=== PATIENT | male | born 1985 | race Caucasian/White ===

== ENCOUNTER 2017-11-13 20:04 | Emergency (ER) | payer SELFPAY ==
[2017-11-13 20:04] VITALS: BP 162/94; PULSE 102; RESP 20; TEMP 37; O2SAT 99; BMI 28.8
--- NOTE | 2017-11-13 20:32 | RAD_ITS ---
STUDY: X-RAY - RIGHT FOOT CLINICAL: Male, 32 years old. Swelling. Pain. Cellulitis. TECHNIQUE: 3 view(s) of the foot. COMPARISON: None. FINDINGS: Normal talus, calcaneus, and tarsal bones. Normal visualized subtalar, talonavicular, calcaneocuboid, tarsal and tarsometatarsal articulations. Normal metatarsi. Normal metatarsophalangeal joint of the great toe. Normal tibial and fibular sesamoid bones. Normal interphalangeal joint of the great toe. Normal phalanges of the great toe. Normal second through fifth metatarsophalangeal joints. Normal interphalangeal joints and phalanges of the lesser toes. The soft tissue structures are unremarkable. RAD/Foot min 3 Views IMPRESSION: Normal x-ray examination of the foot. Electronically Signed: Keyshawn Pete DO at 21:35 EDT Tel [phone], Service support ,
[2017-11-13] MEDS: 0.9% Normal Saline 1,000 ML 999 ML IV (21:01)
[2017-11-13] MEDS: Smz/Tmp Ds Tablet 1 TABLET PO (21:01)
[2017-11-13 21:04] VITALS: PULSE 88; RESP 12; O2SAT 96
[2017-11-13 21:06] LABS: Absolute Lymphocyte Count 4.18 X10^3/ul (0.83-4.51); Absolute Neutrophil Count 9.1 X10^3/uL (2.0-7.7); Basophil# 0.11 X10^3/uL; Basophil% 0.7 % (0-1); Eosinophil# 0.08 X10^3/uL; Eosinophils% 0.5 % (0-5); Hemoglobin 13.9 g/dl (13.0-16.5); Lymphocyte # 4.18 X10^3/ul (4.0); Lymphocyte % 27.8 % (19-41); Mean Corp Hgb Conc 33.1 g/gl (32-36); Mean Corpuscular Hgb 27.1 pg (27.0-32.0); Mean Corpuscular Volume 81.9 fL (80-94); Monocyte# 1.52 X10^3/uL; Monocyte% 10.1 % (0-10); Neutrophil % 60.7 % (47-70); Platelet Count 286 K/mm3 (150-450); RBC Distribution Width CV 13.1 % (11.6-14.6); RBC Distribution Width SD 39.1 fl (35.1-43.9); Red Blood Count 5.13 M/mm3 (4.6-6.2)
[2017-11-13 21:07] LABS: Differential Indicated SCAN CRITERIA MET; POSITIVE COUNT NO; POSITIVE DIFFERENTIAL YES; POSITIVE MORPHOLOGY YES; Partial Thromboplast Time 31.6 Seconds (24.1-36.2); Prothrombin Time (Protime)PT. 13.6 SECONDS (11.7-14.9)
[2017-11-13 21:15] LABS: Platelet Estimate ADEQUATE (ADEQ)
[2017-11-13 21:16] LABS: ALB/GLOB Ratio 0.8 RATIO (0.9-2.4); AST(SGOT) 34 U/L (15-37); Alanine Aminotransfer ALT/SGPT 72 U/L (16-61); Albumin, Serum 3.6 g/dL (3.2-5.0); Alkaline Phosphatase 95 U/L (45-117); Anion Gap 6 (5-15); BUN 16 mg/dL (7-18); BUN/Creat Ratio 14.8 RATIO (10-20); Calcium,Total 8.9 mg/dL (8.5-10.1); Chloride 104 mmol/L (98-107); Creatinine, Serum 1.08 mg/dL (0.70-1.30); EST Glomerular Filtration Rate 84 mL/min (>60); Est Glom Filt Rate - Afr Amer 102 mL/min (>60); Estimated Creatinine Clearance 126.94 ml/min; Globulin 4.4 g/dL (2.2-4.2); Glucose 102 mg/dL (74-106); Potassium 4.6 mmol/L (3.5-5.1); Sodium Level 139 mmol/L (136-145)
[2017-11-13 21:23] LABS: Red Cell Morphology NORM C+C NORMAL (NORM C&C)
[2017-11-13 21:28] LABS: Lactic Acid 0.9 mmol/L (0.4-2.0)
--- NOTE | 2017-11-13 22:04 | ED.VISSUMM ---
- ER Visit Summary Date of Service: 11/13/17 Chief Complaint: Right foot cellulitis History of Present Illness: The patient is a 32 M presenting due to concern for right foot cellulitis. Patient has a history of IV drug abuse. Patient states that he frequently will use his feet as an injection site. He reports that he has not uses feet for over a week, but reports that today he started to notice pain and swelling in his right foot. He denies any constitutional symptoms such as fever. Denies any chest pain shortness of breath. Review of systems otherwise negative. Physical Examination: Vital signs notable for heart rate of 102. Well-nourished male no acute distress. Heart minimally tachycardic and regular no murmurs were present. Lung sounds clear. Abdomen soft nontender. Upper extremity exam shows no evidence of splinter hemorrhages Osler nodes or [place] lesions. Right lower extremity exam shows some edema of the right foot with some overlying erythema but no evidence of lymphangitic streaking no subcutaneous emphysema. Minimal tenderness palpation in the area. Remainder of physical otherwise unremarkable. Test Results: CBC shows leukocytosis of 15 lactic acid negative chemistry normal. Foot x-ray is negative per radiology. Blood cultures were obtained and are pending Emergency Department Course and Treatment: Patient presented for evaluation secondary to what appears to be an infection in his right foot. Laboratory workup shows leukocytosis, but otherwise is within normal limits. Patient was given a liter normal saline and Bactrim. At this point I believe the patient is safe for outpatient management of his foot cellulitis. Patient was given strict return instructions. He will be started on a course of Bactrim, and was discharged Disposition: Discharge Impression: 1. Right foot cellulitis 2. IV drug abuse This note was generated with [employer] dictation software. It may contain incorrect words, spelling, and punctuation that were not noted in review of the chart prior to signing ED Disposition - Plan for ED Patient: Disposition: Home or Assisted Living Chief Complaint: Cellulitis Diagnosis: Cellulitis Instructions: ED Staph Infec Abx Tx Only Prescriptions: Smz/Tmp Ds [Bactrim Ds] 1 tab PO BID #14 tab Referrals: Melissa Reilly [NON-STAFF] - 3-5 Days
--- NOTE | 2017-11-13 22:08 | ED.DCSUM_ITS ---
- ER Visit Summary Date of Service: 11/13/17 Chief Complaint: Right foot cellulitis History of Present Illness: The patient is a 32 M presenting due to concern for right foot cellulitis. Patient has a history of IV drug abuse. Patient states that he frequently will use his feet as an injection site. He reports that he has not uses feet for over a week, but reports that today he started to notice pain and swelling in his right foot. He denies any constitutional symptoms such as fever. Denies any chest pain shortness of breath. Review of systems otherwise negative. Physical Examination: Vital signs notable for heart rate of 102. Well- nourished male no acute distress. Heart minimally tachycardic and regular no murmurs were present. Lung sounds clear. Abdomen soft nontender. Upper extremity exam shows no evidence of splinter hemorrhages Osler nodes or [place] lesions. Right lower extremity exam shows some edema of the right foot with some overlying erythema but no evidence of lymphangitic streaking no subcutaneous emphysema. Minimal tenderness palpation in the area. Remainder of physical otherwise unremarkable. Test Results: CBC shows leukocytosis of 15 lactic acid negative chemistry normal. Foot x-ray is negative per radiology. Blood cultures were obtained and are pending Emergency Department Course and Treatment: Patient presented for evaluation secondary to what appears to be an infection in his right foot. Laboratory workup shows leukocytosis, but otherwise is within normal limits. Patient was given a liter normal saline and Bactrim. At this point I believe the patient is safe for outpatient management of his foot cellulitis. Patient was given strict return instructions. He will be started on a course of Bactrim, and was discharged Disposition: Discharge Impression: 1. Right foot cellulitis 2. IV drug abuse This note was generated with [employer] dictation software. It may contain incorrect words, spelling, and punctuation that were not noted in review of the chart prior to signing ED Disposition - Plan for ED Patient: Disposition: Home or Assisted Living Chief Complaint: Cellulitis Diagnosis: Cellulitis Instructions: ED Staph Infec Abx Tx Only Prescriptions: Smz/Tmp Ds [Bactrim Ds] 1 tab PO BID #14 tab Referrals: Melissa Reilly [NON-STAFF] - 3-5 Days
[2017-11-13 22:22] VITALS: BP 134/83; PULSE 86; RESP 16; O2SAT 97
--- NOTE | 2017-11-13 22:22 | ED.RN ---
signs and symptoms of worsening infection explained, informed to take all of antibiotic. pt [place]. dc'd with dad.
[2017-11-14 10:07] LABS: Pathologist Review Reviewed
== END 2017-11-13 22:23 | disposition home or self-care (01) ==
PROVIDERS: Emergency Provider Emergency Medicine
DX: L03.115 Cellulitis of right lower limb (principal); B96.89 Other specified bacterial agents as the cause of diseases classified elsewhere; F19.10 Other psychoactive substance abuse, uncomplicated
CPT/HCPCS: 73630; 80053; 83605; 85025; 85610; 85730; 87040; 96360; 99285; J7030; A4216

== ENCOUNTER 2021-02-24 00:24 | Emergency (ER) | payer MEDICAID, SELFPAY ==
[2021-02-24 00:26] VITALS: BP 154/108; PULSE 105; RESP 20; TEMP 36; O2SAT 97; BMI 28.2
--- NOTE | 2021-02-24 00:43 | EX.ED.VIS.PS ---
HPI HPI - Psych History of Present Illness Chief Complaint: Suicidal Informant: patient Narrative Narrative: Patient brought in by police secondary to suicidal ideation. Patient states that his is living with another man. He went to try to convince her to come back home and words were said. He reportedly said he was just go kill himself and she called police. Patient denies suicidal thoughts at this time and states it was said in the heat of the moment. He reports a history of depression but has not been on any medication or seen a counselor for approximately 10 years. He denies any prior suicide attempts. [facility] Medical History Depression Medical History no medical history Home Medications tadalafil 10 mg PO PRN PRN 02/24/21 [History Last Taken Unknown] Allergy/AdvReac Type Severity Reaction Status Date / Time venom-honey bee Allergy Severe Anaphylaxis Verified 02/24/21 00:24 [bee venom (honey bee)] Surgical History no surgical history Social History (Updated 02/24/21 @ 00:[address] Almaz Lipscomb MD) Smoking Status: Current every day smoker tobacco type: cigarettes substance use type: marijuana and methamphetamine ROS ROS ED Constitutional Constitutional ED: Denies chills or fever(s) Eyes Eyes: Denies change in vision ENT ENT ED: Denies sore throat Cardiovascular Cardiovascular: Denies chest pain Respiratory/Chest Respiratory/Chest: Denies cough or dyspnea Gastrointestinal Gastrointestinal: Denies abdominal pain, diarrhea, nausea or vomiting Genitourinary Genitourinary ED: Denies dysuria Musculoskeletal Musculoskeletal: Denies back pain Integumentary Denies rash Neurologic Neurologic: Denies headache(s) or weakness Psychiatric Psychiatric: Reports depression; Denies anxiety Allergic/Immunologic Allergic/Immunologic ED: Denies urticaria EXAM Physical Exam Const Vital Signs: 02/24/21 00:26 Temperature 96.8 F L Temperature Source Oral Pulse Rate 105 H Respiratory Rate 20 H Blood Pressure 154/108 H Blood Pressure Mean 123 Pulse Ox 97 Oxygen Delivery Method Room Air Positive well nourished and well developed General Appearance ED: well developed Eyes PERRL and EOMs intact bilaterally Neck supple Resp normal respiratory effort and clear to auscultation bilaterally Cardio Rate: regular rate Rhythm: regular rhythm GI non-tender Auscultation: normoactive bowel sounds Palpation: soft Extremity normal to inspection Neuro oriented x3 Sensorium / Orientation: alert Psych mental status grossly normal, cooperative and affect normal Activity / Motor Behavior: appropriate eye contact Skin Lesions: no lesions Rashes: no rashes MDM MDM MDM Narrative Medical decision making narrative: [place] slip reviewed from the police. It is consistent with what he gave me verbally. Labs for medical clearance obtained. Lab Data Labs: Laboratory Results - last 24 hr 02/24/21 02/24/21 02/24/21 00:53 00:53 00:53 WBC 8.6 RBC 5.31 Hgb 14.3 Hct 44.6 MCV 84.0 MCH 26.9 L MCHC 32.1 RDW Std Deviation 40.0 RDW Coeff of Jono 13.1 Plt Count 295 MPV 10.0 Immature Gran % (Auto) 0.200 Neut % (Auto) 70.8 H Lymph % (Auto) 21.0 [place] % (Auto) 6.5 Eos % (Auto) 0.8 Baso % (Auto) 0.7 Absolute Neuts (auto) 6.1 Absolute Lymphs (auto) 1.81 Nucleated RBC % 0 Sodium 139 Potassium 4.3 Chloride 106 Carbon Dioxide 29.0 Anion Gap 4 L BUN 19 H Creatinine 1.33 H Estim Creat Clear Calc 100.22 Est GFR (MDRD) Af Amer 79 Est GFR (MDRD) Non-Af 65 BUN/Creatinine Ratio 14.3 Glucose 126 H Calcium 9.3 Urine Opiates Screen Urine Methadone Screen Ur Barbiturates Screen Ur Phencyclidine Scrn Ur Amphetamines Screen U Methamphetamin-MDMA U Benzodiazepines Scrn Urine Cocaine Screen U Cannabinoids Screen Ur Drug Screen Comment Ethyl Alcohol 4.0 02/24/21 00:55 WBC RBC Hgb Hct MCV MCH MCHC RDW Std Deviation RDW Coeff of Jono Plt Count MPV Immature Gran % (Auto) Neut % (Auto) Lymph % (Auto) [place] % (Auto) Eos % (Auto) Baso % (Auto) Absolute Neuts (auto) Absolute Lymphs (auto) Nucleated RBC % Sodium Potassium Chloride Carbon Dioxide Anion Gap BUN Creatinine Estim Creat Clear Calc Est GFR (MDRD) Af Amer Est GFR (MDRD) Non-Af BUN/Creatinine Ratio Glucose Calcium Urine Opiates Screen NEGATIVE Urine Methadone Screen NEGATIVE Ur Barbiturates Screen NEGATIVE Ur Phencyclidine Scrn NEGATIVE Ur Amphetamines Screen POSITIVE H U Methamphetamin-MDMA POSITIVE H U Benzodiazepines Scrn NEGATIVE Urine Cocaine Screen NEGATIVE U Cannabinoids Screen POSITIVE H Ur Drug Screen Comment Ethyl Alcohol Treatment and Re-Evaluation Comments:: Lab work reviewed and largely unremarkable. Talk screen is positive for meth and cannabinoids. Sandy from the counseling center spoke with the patient. She will crawl up a safety plan. She will also provide information for drug and alcohol rehab. They will make a follow-up phone call with the patient within the next 24 hours to check on him. Discharge Plan Triage Chief Complaint: Suicidal ED Provider: Almaz Lipscomb Dx/Rx/DC Orders Clinical Impression: Depression Instructions: ED Depression Prescriptions: No Action tadalafil 10 mg tablet 10 mg PO PRN PRN (Reason: Erectile Dysfunction) RF: 0 Primary Care Provider: Care Physician,No Primary Referrals: Counseling,Center [GROUP OF PHYSICIANS] - As soon as possible Care Physician,No Primary [Primary Care Provider] - Disposition Disposition: Home, Self Care
[2021-02-24 00:59] LABS: Absolute Lymphocyte Count 1.81 X10^3/uL (0.83-4.51); Absolute Neutrophil Count 6.1 X10^3/uL (2.0-7.7); Basophil# 0.06 X10^3/uL; Basophil% 0.7 % (0-1); Eosinophil# 0.07 X10^3/uL; Eosinophils% 0.8 % (0-5); Hematocrit 44.6 % (40-54); Hemoglobin 14.3 g/dL (13.0-16.5); Lymphocyte # 1.81 X10^3/ul (0.83-4.51); Mean Corp Hgb Conc 32.1 g/dL (32-36); Mean Corpuscular Hgb 26.9 pg (27.0-32.0); Monocyte# 0.56 X10^3/uL; Monocyte% 6.5 % (0-10); NRBC Flagged by Analyzer 0 % (0-5); Neutrophil # 6.08 X10^3/uL (2.7-7.7); Neutrophil % 70.8 % (47-70); Platelet Count 295 K/mm3 (150-450); RBC Distribution Width CV 13.1 % (11.6-14.6); Red Blood Count 5.31 M/mm3 (4.6-6.2); White Blood Count 8.6 K/mm3 (4.4-11.0)
[2021-02-24 01:17] LABS: Amphetamine Urine VISTA POSITIVE (<1000 ng/mL); Barbiturate Urine VISTA NEGATIVE (< 200 ng/mL); Benzodiazepine Urine VISTA NEGATIVE (< 200 ng/mL); Cocaine Urine VISTA NEGATIVE (< 300 ng/mL); Ecstacy Urine VISTA POSITIVE (< 500 ng/mL); Methadone Urine VISTA NEGATIVE (< 300 ng/mL); PCP Urine VISTA NEGATIVE (< 25 ng/mL); THC Urine VISTA POSITIVE (< 50 ng/mL); Vista UDS pH Range 5
[2021-02-24 01:27] LABS: Anion Gap 4 (5-15); BUN 19 mg/dL (7-18); BUN/Creat Ratio 14.3 RATIO (10-20); Calcium,Total 9.3 mg/dL (8.5-10.1); Chloride 106 mmol/L (98-107); Creatinine, Serum 1.33 mg/dL (0.70-1.30); EST Glomerular Filtration Rate 65 mL/min (>60); Est Glom Filt Rate - Afr Amer 79 mL/min (>60); Estimated Creatinine Clearance 100.22 ml/min; Glucose 126 mg/dL (74-106); Potassium 4.3 mmol/L (3.5-5.1); Sodium Level 139 mmol/L (136-145)
--- NOTE | 2021-02-24 02:03 | ED.RN ---
CALLED CRISIS FOR THE PATIENT AND FAXED PAPERS OVER
[2021-02-24 03:13] VITALS: RESP 16
[2021-02-27 08:09] LABS: HEPATITIS B SURFACE AG Negative (Negative); Hepatitis A IgM Antibody Negative (Negative); Hepatitis B Core AB IgM Negative (Negative)
[2021-02-27 17:37] LABS: Hep C Antibodies >11.0 s/co ratio (0.0-0.9)
== END 2021-02-24 03:14 | disposition home or self-care (01) ==
PROVIDERS: Emergency Provider Emergency Medicine
DX: F32.A Depression, unspecified (principal); R45.851 Suicidal ideations; F17.210 Nicotine dependence, cigarettes, uncomplicated; F12.10 Cannabis abuse, uncomplicated; Z79.899 Other long term (current) drug therapy
CPT/HCPCS: 80048; 80074; 80307; 82077; 85025; 99283

== ENCOUNTER 2021-03-20 08:20 | Emergency (ER) | payer MEDICAID, SELFPAY ==
[2021-03-20 08:21] VITALS: BP 162/105; PULSE 78; RESP 15; TEMP 36.9; O2SAT 99; BMI 26.6
--- NOTE | 2021-03-20 08:33 | EX.ED.VIS.PS ---
HPI HPI - Psych History of Present Illness Chief Complaint: Suicidal Informant: patient Narrative Narrative: Patient admits to being suicidal, chronically and worse now. He apparently had a noose made in his shed where he barricaded himself in this morning, and was texting people goodbye and giving away items that he owns. He states he has been suicidal for a long time and does not want to seek treatment. He was on antidepressants 12 or 13 years ago, they made him feel like a zombie so he stopped taking them and never wants to be on any of them again. He is a daily methamphetamine and marijuana user, his last use was about 3 hours ago, he does IV methamphetamine when he can, his last IV use was yesterday. He does that regularly as well. He denies any fevers, recent illness, recent injury. [facility] Medical History Depression Medical History no medical history Home Medications NK 03/20/21 [History Last Taken Unknown] Allergy/AdvReac Type Severity Reaction Status Date / Time venom-honey bee Allergy Severe Anaphylaxis Verified 03/20/21 08:26 [bee venom (honey bee)] Social History (Updated 02/24/21 @ 00:[address] Almaz Lipscomb MD) Smoking Status: Current every day smoker tobacco type: cigarettes substance use type: marijuana and methamphetamine ROS ROS ED Constitutional Constitutional ED: Denies chills or fever(s) Eyes Eyes: Denies change in vision or diplopia ENT ENT ED: Denies rhinorrhea or sore throat Cardiovascular Cardiovascular: Denies chest pain or palpitations Respiratory/Chest Respiratory/Chest: Denies cough or dyspnea Gastrointestinal Gastrointestinal: Denies abdominal pain, diarrhea, nausea or vomiting Genitourinary Genitourinary ED: Denies dysuria or hematuria Musculoskeletal Musculoskeletal: Denies back pain or neck pain Integumentary Denies abscess or rash Neurologic Neurologic: Denies headache(s), paresthesias or weakness Psychiatric Psychiatric: Reports depression, suicidal ideation and suicidal thoughts; Denies homicidal ideation EXAM Physical Exam Const Vital Signs: 03/20/21 08:21 03/20/21 10:13 03/20/21 12:16 Temperature 98.5 F Temperature Source Oral Pulse Rate 78 82 107 H Respiratory Rate 15 15 16 Blood Pressure 162/105 H 138/74 H 117/81 H Blood Pressure Mean 124 95 93 Pulse Ox 99 97 98 Oxygen Delivery Method Room Air Room Air Room Air 03/20/21 14:33 Temperature Temperature Source Pulse Rate Respiratory Rate 14 Blood Pressure Blood Pressure Mean Pulse Ox Oxygen Delivery Method Positive well nourished and well developed General Appearance ED: well developed and NAD HEENT Reports moist mucous membranes normocephalic and atraumatic Eyes PERRL and EOMs intact bilaterally General Eye ED: Negative for scleral icterus Neck no lymphadenopathy and supple Resp normal respiratory effort and clear to auscultation bilaterally Cardio no murmurs Rate: regular rate and tachycardic Rhythm: regular rhythm GI non-tender and non-distended Auscultation: normoactive bowel sounds Palpation: soft Back/Spine no CVA tenderness and normal ROM Extremity normal to inspection General Extremety ED: Negative for edema General Extremity: Negative for edema Neuro oriented x3, CN's II-XII intact bilaterally, no sensory deficits noted and gait normal Sensorium / Orientation: alert Motor Exam: strength 5/5 throughout Psych mental status grossly normal, thought process normal, cooperative, activity/motor behavior normal and denies homicidal ideation Mood & Affect: depressed Thought Content: suicidality Skin Skin Narrative: 3 nontender subcutaneous nodules on upper extremities, one on the medial right upper arm distally, one at the medial aspect of the mid right forearm, and one in the left medial forearm. All are without any erythema or fluctuance and the patient states these have been there chronically and are unchanged. There is a small scab on the right forearm, from an IV injection site, there is no erythema or tenderness or abscess there. Lesions: no lesions Rashes: no rashes [facility] MDM MDM Narrative Medical decision making narrative: Other than the patient has toxicology positive for methamphetamines and tetrahydrocannabinol, both of which patient admits to using recently this morning, patient's labs are unremarkable and he is medically cleared. None of the nodules on his forearms are in need of urgent attention, they are chronic and do not appear to be infected or abscesses. Likely scar tissue. Patient is pink slipped. Crisis evaluated and agrees he needs to be placed for further psychiatric evaluation. Patient has been cooperative and does not have any evidence of psychosis from methamphetamine. Additionally, since his urinalysis shows no blood or red blood cells, obtaining a CPK to rule out rhabdomyolysis related to methamphetamine abuse would not be indicated or necessary. Lab Data Attestation: I reviewed the patient's lab results. Labs: Laboratory Results - last 24 hr 03/20/21 03/20/21 03/20/21 08:58 08:58 08:58 WBC Cancelled Corrected WBC Cancelled RBC Cancelled Hgb Cancelled Hct Cancelled MCV Cancelled MCH Cancelled MCHC Cancelled RDW Std Deviation Cancelled RDW Coeff of Jono Cancelled Plt Count Cancelled MPV Cancelled Immature Gran % (Auto) Cancelled Neut % (Auto) Cancelled Lymph % (Auto) Cancelled [place] % (Auto) Cancelled Eos % (Auto) Cancelled Baso % (Auto) Cancelled Absolute Neuts (auto) Cancelled Absolute Lymphs (auto) Cancelled Total Counted Cancelled Neutrophils % (Manual) Cancelled Band Neutrophils % Cancelled Lymphocytes % (Manual) Cancelled Monocytes % (Manual) Cancelled Eosinophils % (Manual) Cancelled Basophils % (Manual) Cancelled Metamyelocytes % Cancelled Myelocytes % Cancelled Promyelocytes % Cancelled Blast Cells % Cancelled Plasma Cell % (Manual) Cancelled Other Cells % Cancelled Nucleated RBC % Cancelled Nucleated RBCs/100 WBC Cancelled Differential Comment Cancelled Diff Path Review Cancelled Hypersegmented Neuts Cancelled Atypical Lymphocytes Cancelled Reactive Lymphocytes Cancelled Smudge Cells Cancelled Toxic Granulation Cancelled Toxic Vacuolation Cancelled Dohle Bodies Cancelled Julia Rods Cancelled Platelet Estimate Cancelled Plt Morphology Comment Cancelled RBC Morphology Cancelled Polychromasia Cancelled Hypochromasia Cancelled Poikilocytosis Cancelled Basophilic Stippling Cancelled Anisocytosis Cancelled Microcytosis Cancelled Macrocytosis Cancelled Spherocytes Cancelled Sickle Cells Cancelled Target Cells Cancelled Tear Drop Cells Cancelled Ovalocytes Cancelled Stomatocytes Cancelled [place] Bodies Cancelled [place] Cells Cancelled Bite Cells Cancelled Crenated Cell Cancelled Acanthocytes (Spur) Cancelled Rouleaux Cancelled Schistocytes Cancelled Sodium 137 Potassium 4.6 Chloride 104 Carbon Dioxide 30.0 Anion Gap 3 L BUN 19 H Creatinine 1.20 Estim Creat Clear Calc 111.08 Est GFR (MDRD) Af Amer 88 Est GFR (MDRD) Non-Af 73 BUN/Creatinine Ratio 15.8 Glucose 108 H Calcium 9.0 Urine Color Urine Clarity Urine pH Ur Specific [place] Urine Protein Urine Glucose (UA) Urine Ketones Urine Occult Blood Urine Nitrite Urine Bilirubin Urine Urobilinogen Ur Leukocyte Esterase Urine RBC Urine WBC Ur Squamous Epith Cells Amorphous Sediment Urine Bacteria Urine Mucus Urine Opiates Screen Urine Methadone Screen Ur Barbiturates Screen Ur Phencyclidine Scrn Ur Amphetamines Screen U Methamphetamin-MDMA U Benzodiazepines Scrn Urine Cocaine Screen U Cannabinoids Screen Ur Drug Screen Comment Ethyl Alcohol < 3.0 03/20/21 03/20/21 03/20/21 09:18 10:00 10:00 WBC 8.5 Corrected WBC RBC 5.55 Hgb 14.5 Hct 44.8 MCV 80.7 MCH 26.1 L MCHC 32.4 RDW Std Deviation 37.2 RDW Coeff of Jono 12.7 Plt Count 326 MPV 9.7 Immature Gran % (Auto) 0.200 Neut % (Auto) 71.4 H Lymph % (Auto) 20.4 [place] % (Auto) 7.7 Eos % (Auto) 0.1 Baso % (Auto) 0.2 Absolute Neuts (auto) 6.0 Absolute Lymphs (auto) 1.73 Total Counted Neutrophils % (Manual) Band Neutrophils % Lymphocytes % (Manual) Monocytes % (Manual) Eosinophils % (Manual) Basophils % (Manual) Metamyelocytes % Myelocytes % Promyelocytes % Blast Cells % Plasma Cell % (Manual) Other Cells % Nucleated RBC % 0 Nucleated RBCs/100 WBC Differential Comment Diff Path Review Hypersegmented Neuts Atypical Lymphocytes Reactive Lymphocytes Smudge Cells Toxic Granulation Toxic Vacuolation Dohle Bodies Julia Rods Platelet Estimate Plt Morphology Comment RBC Morphology Polychromasia Hypochromasia Poikilocytosis Basophilic Stippling Anisocytosis Microcytosis Macrocytosis Spherocytes Sickle Cells Target Cells Tear Drop Cells Ovalocytes Stomatocytes [place] Bodies [place] Cells Bite Cells Crenated Cell Acanthocytes (Spur) Rouleaux Schistocytes Sodium Potassium Chloride Carbon Dioxide Anion Gap BUN Creatinine Estim Creat Clear Calc Est GFR (MDRD) Af Amer Est GFR (MDRD) Non-Af BUN/Creatinine Ratio Glucose Calcium Urine Color Yellow Urine Clarity Cloudy Urine pH 5.0 Ur Specific [place] 1.030 Urine Protein 30 H Urine Glucose (UA) Normal Urine Ketones Negative Urine Occult Blood Negative Urine Nitrite Negative Urine Bilirubin Negative Urine Urobilinogen Normal Ur Leukocyte Esterase Negative Urine RBC 0 SEEN Urine WBC 0 SEEN Ur Squamous Epith Cells 0 SEEN Amorphous Sediment 2+ Urine Bacteria 2+ Urine Mucus 0 SEEN Urine Opiates Screen NEGATIVE Urine Methadone Screen NEGATIVE Ur Barbiturates Screen NEGATIVE Ur Phencyclidine Scrn NEGATIVE Ur Amphetamines Screen POSITIVE H U Methamphetamin-MDMA POSITIVE H U Benzodiazepines Scrn NEGATIVE Urine Cocaine Screen NEGATIVE U Cannabinoids Screen POSITIVE H Ur Drug Screen Comment Ethyl Alcohol EKG Initial EKG: Attestation: I personally reviewed and interpreted this EKG as follows: Interpretation: Sinus Rhythm and No Acute Injury Pattern Comments: normal EKG Discharge Plan Triage Chief Complaint: Suicidal ED Provider: Aryan Parsons Dx/Rx/DC Orders Clinical Impression: Suicidal ideation, Methamphetamine abuse Prescriptions: No Action NK RF: 0 Primary Care Provider: Care Physician,No Primary Referrals: Care Physician,No Primary [Primary Care Provider] - Disposition Disposition: Psychiatric Hospital or Unit
[2021-03-20 09:21] LABS: Anion Gap 3 (5-15); BUN 19 mg/dL (7-18); BUN/Creat Ratio 15.8 RATIO (10-20); Chloride 104 mmol/L (98-107); EST Glomerular Filtration Rate 73 mL/min (>60); Est Glom Filt Rate - Afr Amer 88 mL/min (>60); Estimated Creatinine Clearance 111.08 ml/min; Glucose 108 mg/dL (74-106); Potassium 4.6 mmol/L (3.5-5.1); Sodium Level 137 mmol/L (136-145)
[2021-03-20 09:31] LABS: Absolute Lymphocyte Count 1.73 X10^3/uL (0.83-4.51); Basophil# 0.02 X10^3/uL; Basophil% 0.2 % (0-1); Eosinophil# 0.01 X10^3/uL; Eosinophils% 0.1 % (0-5); Hematocrit 44.8 % (40-54); Hemoglobin 14.5 g/dL (13.0-16.5); Lymphocyte # 1.73 X10^3/ul (0.83-4.51); Lymphocyte % 20.4 % (19-41); Mean Corp Hgb Conc 32.4 g/dL (32-36); Mean Corpuscular Hgb 26.1 pg (27.0-32.0); Mean Corpuscular Volume 80.7 fL (80-94); Mean Platelet Vol. 9.7 fl (6.2-12.0); Monocyte# 0.65 X10^3/uL; Monocyte% 7.7 % (0-10); NRBC Flagged by Analyzer 0 % (0-5); Neutrophil # 6.03 X10^3/uL (2.7-7.7); Neutrophil % 71.4 % (47-70); Platelet Count 326 K/mm3 (150-450); RBC Distribution Width CV 12.7 % (11.6-14.6); RBC Distribution Width SD 37.2 fl (35.1-43.9); Red Blood Count 5.55 M/mm3 (4.6-6.2); White Blood Count 8.5 K/mm3 (4.4-11.0)
[2021-03-20 09:34] LABS: Alcohol, Blood (Medical)-Serum < 3.0 mg/dL
[2021-03-20 10:13] VITALS: BP 138/74; PULSE 82; RESP 15; O2SAT 97
[2021-03-20 10:27] LABS: Amphetamine Urine VISTA POSITIVE (<1000 ng/mL); Barbiturate Urine VISTA NEGATIVE (< 200 ng/mL); Benzodiazepine Urine VISTA NEGATIVE (< 200 ng/mL); Cocaine Urine VISTA NEGATIVE (< 300 ng/mL); Ecstacy Urine VISTA POSITIVE (< 500 ng/mL); Methadone Urine VISTA NEGATIVE (< 300 ng/mL); PCP Urine VISTA NEGATIVE (< 25 ng/mL); THC Urine VISTA POSITIVE (< 50 ng/mL); Vista UDS pH Range 5
[2021-03-20 12:16] VITALS: BP 117/81; PULSE 107; RESP 16; O2SAT 98
--- NOTE | 2021-03-20 12:21 | CM.ED ---
Addendum entered by Kathy Esposito 03/20/21 12:59: After further review of patient chart, patient was noted to have came to [facility] ED on 02/24/2021 for suicidal ideation, at that time patient was sent back home to the community. There is concern of patient increased risk for suicidality after today's events. Original Note: Social Work Consult: Suicidal Ideation Referral Source: Dr. Parsons Chief Complaint: Patient mother, Yun was notified by three people that patient was sending text messages with statements that involved patient wish/intent to complete suicide. Patient currently denies active suicidal thoughts, intents, plans. Marital/Social History: to Minerva Bowen for the past three years. Currently not living together she is living with another man. Living Situation: Lives with parents, Yun and Chao Bowen Support/Resources: No active counseling services. Reports support from parents and multiple friends. History: Denies Education/Employment History: Completed high school. Works for a [employer]. Mental Health Treatment/History: Depression. History of inpatient psychiatric placement in [place] 10-15 years ago. Patient denies any active medications to manage mental health but a history of being on Ativan. Triggers/Stressors: marriage issues. Reports issues with marriage started the week before [place]. Coping Skills: my dog. Substance Abuse Hx: Reports active Meth use with last use being 6 hours ago. Patient reports to have stopped using Meth for the past two weeks in attempt to please patient spouse but started using again last night. Patient reports to smoke tobacco daily and to use THC every so often. Patient denies any other current substance abuse/use. Risk to Self/Others: Patient reports daily suicidal thoughts for the past few weeks. Patient denies any plan to complete suicide or intent. Patient reports to live for my dog and patient parents and spouse. Patient denies any history of suicide attempts. Patient denies homicidal thoughts, plans, intents. Patient denies self harming behavior. Mental Status Exam: A&Ox3 Appearance/General Behavior: Disheveled. Calm. Mood/Affect: Appropriate. Anxious. Communication Pattern: Responds to questions. Thought Process: Denies hallucinations, delusions. Reports some paranoia with patient spouse coming to the house and going through my things. Patient reports that patient spouse still has a gayle to the house. Judgement: Fair Assessment: Met with patient in room. Introduced self and social media director role. Patient agreeable to speak with this social media director. Patient reports to feel safe to self. This social media director expressing concern for patient actually being safe to self due to pink slip. Per the pink slip patient had self barricade in shed with a rope/chain hanging from the rafter and was texting friends/family about giving personal belongings away. Per pink slip patient mother was contacted by multiple people that patient was planning to complete suicide. Patient mother then called the police. Per patient at the time the police showed up to the home patient was out of the shed and in the house with patient mother. Patient reports I was doing fine. Patient reports I just joke about it, it being suicidality as a coping skill. Patient does state I am not doing well mentally and probably need to get some help. Patient admits to have taken three pills this morning to try and calm down. Patient reports that patient spouse is who gave patient the pills and patient thought the pills were Ativan. Patient reports to have gotten up this morning and got some poptarts and milk and went to the shed after taking the pills and smoked a cigarette. Patient reports that there are always ropes/chains hanging from the rafters it is a shed. Patient also reports that the reason the shed was locked closed was to keep the cold out. Patient reports to have blacked out and to have not remembered anything after that until patient mother was trying to get into the shed. Active support and listening provided. Patient is agreeable to this social media director contacting patient parents. Telephone call to patient mother, Yun. no answer. Telephone call to patient father, Chao. Chao answering phone. Chao reports concern for patient and recommendation for patient to get help. Chao reports that three people notified Chao/Yun that patient had sent text with plan to end life, one person was patient boss and that patient was thanking people for being involved in his life and was giving things away. Chao reports to be concerned about how patient is doing mentally. This social media director inquired if the shed typically has ropes/chains hanging from the rafters. Chao reports that we were just out there last week and had everything cleaned up and denies the ropes/chains typically being there. Chao also reports that typically a person is able to get into the shed when patient as in the shed. This social media director thanked Chao for information. Collaborating with Dr. Parsons. Recommending inpatient psychiatric placement. Patient denies suicidality but per patient family, pink slip patient presenting with risk to harm self as evidenced by barricading in shed, hanging ropes/chains from rafters, and texting friends/family saying goodbye and giving belongings away. PLAN: In patient psychiatric placement Will continue to follow. Jessenia HOPKINS, CRISTINA
--- NOTE | 2021-03-20 13:01 | CM.ED ---
Social Work Telephone call to intake. Lei Fong. Lei confirms to accept patient insurance. Clinical information faxed. Pending acceptance. Will continue to follow. Jessenia HOPKINS, CRISTINA
[2021-03-20 14:14] LABS: Mucous, Urine 0 SEEN /hpf (<or=2+); Red Blood Cells-Urine 0 SEEN /hpf (0-5); Squamous Epithelial Cells - UA 0 SEEN /hpf (0-5); White Blood Cells 0 SEEN /hpf (0-5)
[2021-03-20 14:20] LABS: Color, Urine Yellow (Yellow); Glucose, Dipstick Normal (Normal); Ketone-Dipstick Negative (Negative); Leukocyte Esterase-Dipstick Negative /ul (Negative); Nitrite-Dipstick Negative (Negative); Occult Blood-Urine Negative /ul (Negative); Protein-Dipstick 30 mg/dl (Negative); Urine Bilirubin Dipstick Negative (Negative); Urine Clarity Cloudy (Clear); Urine Urobilinogen Normal (Normal)
--- NOTE | 2021-03-20 14:20 | CM.ED ---
Social Work Telephone call to Lei Reynolds. Lei able to confirm to have received referral and to be waiting on doctor to review. Will continue to follow. Jessenia HOPKINS, CRISTINA
--- NOTE | 2021-03-20 14:24 | EKG12_ITS ---
Test Reason : MENTAL CLEARANCE Blood Pressure : / mmHG Vent. Rate : 097 BPM Atrial Rate : 097 BPM P-R Int : 148 ms QRS Dur : 102 ms QT Int : 366 ms P-R-T Axes : 072 060 055 degrees QTc Int : 464 ms Normal sinus rhythm Normal ECG Confirmed by ZAFAR PÉREZ, BALDEV ([id number]), brands editor ALEKSEY PLATT ([id number]) on 03/21/2021 9:22:23 AM Referred By: MARCELINO Confirmed By:BALDEV STEPHEN MD
[2021-03-20 14:33] VITALS: RESP 14
[2021-03-20 14:40] LABS: Amorphous Sediment 2+; Bacteria 2+ /hpf (None Seen)
[2021-03-20] MEDS: LORazepam 1 MG Tablet 2 MG PO (14:48)
--- NOTE | 2021-03-20 15:21 | CM.ED ---
Social Work Telephone call from Chao Reynolds. Case is continuing to be reviewed and request for an EKG. EKG results faxed. Will continue to follow. Jessenia HOPKINS, CRISTINA
--- NOTE | 2021-03-20 16:51 | CM.ED ---
Social Work Telephone call from Chao Reynolds. Patient accepted by Dr. Wilkinson to main unit. Nurse to call report to [phone]. Chao set up transportation through [employer]. Links to pick patient up at 7:30pm from [facility] ED. Medical team and patient updated. Patient mother also present in patient room and updated on all above information. PLAN: Discharge to [facility]. Jessenia HOPKINS, JUSTINAS
[2021-03-20 16:57] VITALS: BP 120/85; PULSE 91; RESP 18; O2SAT 94
[2021-03-20 18:51] VITALS: BP 149/82; PULSE 76; RESP 15; TEMP 36.4; O2SAT 98
== END 2021-03-20 19:08 ==
PROVIDERS: Emergency Provider Emergency Medicine; Visit Provider Emergency Medicine
DX: R45.851 Suicidal ideations (principal); F15.10 Other stimulant abuse, uncomplicated; F12.90 Cannabis use, unspecified, uncomplicated; F17.210 Nicotine dependence, cigarettes, uncomplicated; F32.A Depression, unspecified
CPT/HCPCS: 80048; 80307; 81001; 82077; 85025; 87426; 93005; 99285

== ENCOUNTER 2021-05-17 19:14 | Outpatient (REF) | payer SELFPAY ==
[2021-05-17 19:16] VITALS: BP 135/101; PULSE 89; RESP 14; TEMP 36; O2SAT 93; BMI 28.8
--- NOTE | 2021-05-17 19:37 | EX.ED.DYSGE1 ---
HPI History of Present Illness Chief Complaint: Cellulitis Detail of Chief Complaint: Bilateral foot wounds. Informant: patient Onset/Context/Timing Onset: Weeks Context: Gradual Onset Timing: Continuous Current Severity: Mild Maximum Severity: Mild Narrative Narrative: 35-year-old male with history of underlying psychiatric illness. He has been in retirement for the last 17 days. States that he has developed wounds in both feet for the last 6 weeks. Was on antibiotics did not really notice a significant difference. Denies any drainage or discharge. He is not diabetic. He denies any injuries. Prior similar symptoms: No Recent Illness/Hospitalization: No PFSH PFSH Medical History Depression Home Medications cephalexin 500 mg PO TID #20 cap 05/17/21 [Rx Last Taken Unknown] Allergy/AdvReac Type Severity Reaction Status Date / Time venom-honey bee Allergy Severe Anaphylaxis Verified 03/20/21 08:26 [bee venom (honey bee)] shellfish derived Allergy Anaphylaxis Verified 05/17/21 19:16 Social History Smoking Status: Current every day smoker tobacco type: cigarettes substance use type: marijuana and methamphetamine ROS ROS ED ROS Narrative Denies Review of Systems ROS Unobtainable: Denies due to encephalopathy Constitutional Constitutional ED: Denies fever(s) Eyes Eyes: Denies change in vision ENT ENT ED: Denies ear pain Cardiovascular Cardiovascular: Denies chest pain Respiratory/Chest Respiratory/Chest: Denies dyspnea Gastrointestinal Gastrointestinal: Denies abdominal pain, diarrhea, nausea or vomiting Genitourinary Genitourinary ED: Denies dysuria Musculoskeletal Musculoskeletal: Denies myalgias Integumentary Denies rash Neurologic Neurologic: Denies headache(s) Psychiatric Psychiatric: Denies depression Endocrine Endocrinology: Denies polyuria Allergic/Immunologic Allergic/Immunologic ED: Denies urticaria EXAM Physical Exam Narrative Exam Narrative: 35-year-old male no acute distress. Vital signs stable afebrile. H EENT exam unremarkable. Lungs are clear. Heart regular rate and rhythm rate about 85 no murmur. Abdomen soft nontender. Moving all 4 extremities. Neurovascular intact. On the medial proximal instep of his right foot there is a wound about the size of a dime to quarter. There is no pus or discharge. There is minimal redness. There is no streaks. Foot otherwise is nontender nonswollen. There is a similar wound not as severe on the left foot in the same area. Both feet are neurovascularly intact with DP pulses. He does have tinea. Dorsi plantarflexion is intact. Const Vital Signs: 05/17/21 19:16 Temperature 96.8 F L Temperature Source Temporal Pulse Rate 89 Respiratory Rate 14 Blood Pressure 135/101 H Blood Pressure Mean 112 Pulse Ox 93 Oxygen Delivery Method Room Air Positive well nourished and well developed; Negative for obese, cachectic, contractures or unkempt General Appearance ED: well developed and NAD; Negative for unkempt, cachectic, contractures, cyanotic or diaphoretic Nutritional Appearance: Negative for cachectic or obese HEENT Reports moist mucous membranes Negative for trauma or tenderness Eyes PERRL and EOMs intact bilaterally General Eye ED: Negative for pale conjunctiva or scleral icterus Neck no lymphadenopathy, supple and no JVD General: Negative for tenderness Chest Wall inspection of chest normal and palpation of chest normal Resp normal respiratory effort and clear to auscultation bilaterally Auscultation: Negative for rales, rhonchi or wheezes Cardio regular rate, regular rhythm, S1 normal heart sound, S2 normal heart sound and no murmurs GI normal to inspection, nondistended, normoactive bowel sounds, non-tender, non-distended and no masses Auscultation: normoactive bowel sounds Palpation: soft; Negative for tender, guarding or rebound tenderness present Back/Spine no CVA tenderness Extremity normal to inspection Extremity Narrative: Bilateral foot wounds medial proximal aspect of both insteps. No streaks. No swelling. No discharge. Both feet are neurovascularly intact. No odor. He also has mild tinea bilaterally. General Extremety ED: Negative for edema or tenderness General Extremity: Negative for edema Neuro oriented x3 and CN's II-XII intact bilaterally Sensorium / Orientation: alert; Negative for orientation impaired, lethargic or stuporous Motor Exam: strength 5/5 throughout Psych mental status grossly normal Appearance: Negative for unkempt Mood & Affect: Negative for depressed or tearful Skin no rashes or lesions noted and No no wounds Wounds: wounds noted MDM MDM MDM Narrative Medical decision making narrative: BG to be obtained. Patient given dose of Keflex and a prescription for the next 7 days. Outpatient follow up with a local irrigationist designer. Prescription for Keflex which the retirement will get filled. Return if worse. Discharge Plan Triage Chief Complaint: Cellulitis ED Provider: Surinder Ruiz Dx/Rx/DC Orders Clinical Impression: Wound of foot Prescriptions: New cephalexin 500 mg capsule 500 mg PO TID Qty: 20 RF: 0 Primary Care Provider: Care Physician,No Primary Referrals: Zenon Conti DPM [STAFF PHYSICIAN] - 3-5 Days Care Physician,No Primary [Primary Care Provider] - Activity Restrictions/Additional Instructions: Keep the areas clean. Keflex 3 times a day. Antifungal cream or spray for the athlete's foot but not in the area of the wound. Call and follow-up with a local irrigationist designer. Disposition Disposition: Home, Self Care
[2021-05-17] MEDS: Cephalexin 250 MG Capsule 500 MG PO (20:12)
[2021-05-17 20:14] VITALS: BP 135/79; PULSE 71; RESP 18; O2SAT 98
[2021-05-17 20:26] LABS: Bedside Glucose 125 mg/dL (74-106)
== END 2021-05-17 23:59 | disposition home or self-care (01) ==
LOC: ED 19:14
PROVIDERS: Visit Provider Emergency Medicine
DX: S91.301A Unspecified open wound, right foot, initial encounter (principal); S91.302A Unspecified open wound, left foot, initial encounter; F17.210 Nicotine dependence, cigarettes, uncomplicated; F12.90 Cannabis use, unspecified, uncomplicated; X58.XXXA Exposure to other specified factors, initial encounter
CPT/HCPCS: 82962

== ENCOUNTER 2021-05-24 16:07 | Outpatient (CLI) | payer MEDICAID, SELFPAY | END 2021-05-24 23:59 | disposition home or self-care (01) | LOC: LABSPEC 16:08 | PROVIDERS: Visit Provider Podiatrist | DX: L03.116 Cellulitis of left lower limb (principal) | CPT/HCPCS: 87070; 87075; 87077; 87186; 87205 ==

== ENCOUNTER → 2023-08-27 | Outpatient (CLI) | payer MEDICAID, SELFPAY ==
[2023-08-27 11:05] LABS: Erythrocyte Sedimentation Rate 7 mm/hr (0-20)
[2023-08-27 11:09] LABS: Absolute Neutrophil Count 3.4 X10^3/uL (2.0-7.7); Basophil# 0.05 X10^3/uL; Basophil% 0.8 % (0-1); Eosinophil# 0.17 X10^3/uL; Eosinophils% 2.6 % (0-5); Hematocrit 45.8 % (40-54); Hemoglobin 14.3 g/dL (13.0-16.5); Lymphocyte % 34.1 % (19-41); Mean Corp Hgb Conc 31.2 g/dL (32-36); Mean Corpuscular Hgb 26.4 pg (27.0-32.0); Mean Corpuscular Volume 84.7 fL (80-94); Mean Platelet Vol. 10.5 fl (6.2-12.0); Monocyte# 0.59 X10^3/uL; Monocyte% 9.1 % (0-10); NRBC Flagged by Analyzer 0 % (0-5); Neutrophil # 3.43 X10^3/uL (2.7-7.7); Neutrophil % 53.1 % (47-70); Platelet Count 305 K/mm3 (150-450); RBC Distribution Width CV 13.1 % (11.6-14.6); RBC Distribution Width SD 40.4 fl (35.1-43.9); Red Blood Count 5.41 M/mm3 (4.6-6.2); White Blood Count 6.5 K/mm3 (4.4-11.0)
[2023-08-27 11:42] LABS: Hemoglobin A1c 5.4 % (3.8-5.6)
[2023-08-27 11:47] LABS: ALB/GLOB Ratio 0.8 RATIO (0.9-2.4); AST(SGOT) 37 U/L (15-37); Alanine Aminotransfer ALT/SGPT 59 U/L (16-61); Albumin, Serum 3.7 g/dL (3.2-5.0); Alkaline Phosphatase 101 U/L (45-117); Anion Gap 3 (5-15); BUN 13 mg/dL (7-18); BUN/Creat Ratio 11.1 RATIO (10-20); CRP 6.21 mg/L (0.0-3.0); Calcium,Total 9.1 mg/dL (8.5-10.1); Chloride 104 mmol/L (98-107); Cholesterol 123 mg/dL (200); Creatinine, Serum 1.17 mg/dL (0.70-1.30); EST Glomerular Filtration Rate 74 mL/min (>60); Est Glom Filt Rate - Afr Amer 90 mL/min (>60); Globulin 4.9 g/dL (2.2-4.2); Glucose 101 mg/dL (74-106); High Density Lipoprotein 46 mg/dL; Potassium 4.5 mmol/L (3.5-5.1); Protein, Total 8.6 g/dL (6.4-8.2); Sodium Level 136 mmol/L (136-145); Thyroid Stim Hormone (TSH) 1.39 uIU/mL (0.358-3.74); Triglycerides 40 mg/dL; Very Low Density Lipoprotein 8 mg/dL (5-40)
[2023-08-29 14:08] LABS: ANTINUCLEAR ANTIBODIES DIRECT Negative (Negative)
== END | disposition home or self-care (01) ==
PROVIDERS: PCP Family Medicine; Referring Provider Family Medicine; Visit Provider Family Medicine
DX: M79.89 Other specified soft tissue disorders (principal)
CPT/HCPCS: 36415; 80053; 80061; 83036; 84443; 85025; 85652; 86038; 86140

== ENCOUNTER → 2023-09-11 | Outpatient (CLI) | payer MEDICAID, SELFPAY ==
[2023-09-11 13:43] LABS: HIV - WCH Non-Reactive (Nonreactive); Hepatitis B Surface Antibody Reactive; Hepatitis B Surface Antigen Non-Reactive (Nonreactive); Hepatitis C Antibody Preliminary Reactive (Nonreactive); Syphilis Antibodies Non-reactive
[2023-09-12 10:09] LABS: Hepatitis B Core Ab Total Negative (Negative)
== END | disposition home or self-care (01) ==
LOC: VSLAB 11:03
PROVIDERS: PCP Family Medicine; Visit Provider Family Medicine
DX: B19.20 Unspecified viral hepatitis C without hepatic coma (principal); Z87.438 Personal history of other diseases of male genital organs
CPT/HCPCS: 36415; 86703; 86704; 86706; 86780; 86803; 87340; 87491; 87522; 87591